=== PATIENT | female | born 1990 | race Caucasian/White ===

== ENCOUNTER 2017-08-18 20:36 | Inpatient (IN) | payer OTHER ==
[~2017-08-18] VITALS: Ht 157.5 cm; Wt 69.9 kg
[2017-08-18] VITALS (40 sets, daily range): BP systolic 109–145; BP diastolic 64–97; PULSE 72–96; RESP 15; O2SAT 100
[~2017-08-18 20:36] MED LIST: IBUP600 PO; PREN0.01 PO; ePHEDrine/NS 25 MG/5 ML SYRINGE IV PUSH PRN; fentaNYL 2MCG-BUPIV 0.125% 150 ML EPIDURAL PRN
[2017-08-18] MEDS ORDERED: LACTATED RINGER'S 1000 ML INJ 1,000 ML IV PRN (21:19)
[2017-08-18] MEDS ORDERED: LACTATED RINGER'S 1000 ML INJ 1,000 ML IV SCH (21:19)
[2017-08-18] MEDS ORDERED: fentaNYL 2MCG-BUPIV 0.125% INJ 150 ML EPIDURAL ONE (21:25)
[2017-08-18] MEDS ORDERED: MINERAL OIL 10 ML VIAL TOPICAL PRN (21:30)
[2017-08-18] MEDS ORDERED: LIDOCAINE HCL 1% 50 ML VIAL INFIL PRN (21:30)
[2017-08-18] MEDS ORDERED: OXYTOCIN 30 UNITS-500ML PREMIX 500 ML IV ONE (21:30)
[2017-08-18] MEDS ORDERED: LIDOCAINE HCL 1% 50 ML VIAL I-DERMAL PRN (21:30)
[2017-08-18] MEDS ORDERED: PENICILLIN G POTASSIUM INJ 5,000,000 UNITS in SODIUM CHLORIDE 0.9% INJ 100 ML IV ONE (21:30)
[2017-08-18] MEDS ORDERED: DO NOT ADMINISTER ANTICOAGULANTS PRN (21:30)
[2017-08-18] MEDS ORDERED: CITRIC ACID-SODIUM CITRATE LIQ 30 ML UDC PO SCH (21:30)
[2017-08-18] MEDS ORDERED: SODIUM CHLORID 0.9% 500 ML INJ 500 ML IV PRN (21:30)
[2017-08-18] MEDS ORDERED: NO SYSTEM NARCOTICS PRN (21:30)
[2017-08-18] MEDS ORDERED: ONDANSETRON ODT 4 MG TAB PO PRN (21:30)
[2017-08-18] MEDS ORDERED: ePHEDrine/NS 25 MG/5 ML SYRINGE ONE (21:32)
[2017-08-18] MEDS ORDERED: SODIUM CHLOR 0.9% 1000 ML INJ 1,000 ML IV PRN (21:39)
[2017-08-18 21:48] LABS: AUTOMATED NEUTROPHIL # 6.5 TH/MM3 (1.8-7.7); BASOPHIL % 0.3 % (0.0-2.0); EOSINOPHIL # 0.1 TH/MM3 (0-0.4); EOSINOPHIL % 1.4 % (0.0-4.0); HEMATOCRIT 35.4 % (35.0-46.0); HEMOGLOBIN 11.8 GM/DL (11.6-15.3); LYMPH % 24.4 % (9.0-44.0); LYMPHOCYTE # 2.3 TH/MM3 (1.0-4.8); MEAN CELL VOLUME 88.1 FL (80.0-100.0); MEAN CORPUSCULAR HEMOGLOBIN 29.4 PG (27.0-34.0); MEAN CORPUSCULAR HGB CONC 33.3 % (32.0-36.0); MEAN PLATELET VOLUME 11.3 FL (7.0-11.0); MONOCYTE # 0.6 TH/MM3 (0-0.9); NEUT % 67.9 % (16.0-70.0); PLATELET COUNT 99 TH/MM3 (150-450); RED BLOOD COUNT 4.01 MIL/MM3 (4.00-5.30); RED CELL DISTRIBUTION WIDTH 13.8 % (11.6-17.2); WHITE BLOOD COUNT 9.5 TH/MM3 (4.0-11.0)
--- NOTE | 2017-08-18 22:05 | PD ---
HPI Chief Complaint contractions Date Seen: Aug 18, 2017 Time Seen: 21:10 Travel History International Travel<30 Days: No Contact w/Intl Traveler<30Days: No Known Affected Area: No History of Present Illness HPI 27 presents at 39 wks c/o regular contractions. +FM, no LOF or VB. uncomplicated. care with dr. hernandez. states GBS + History Past Medical History Medical History: Denies Significant Hx Obstetric History Obstetric History X 2 Past Surgical History Narrative Surgical breast augmentation jaw surgery Family History Family History: Negative Social History Alcohol Use: No Tobacco Use: No Substance Abuse: No Allergies-Medications (Allergen,Severity, Reaction): Coded Allergies: No Known Allergies (Unverified , 12/06/15) Home Meds Reported Medications Multivit/Min/Fol Ac/Iron/Pren ( Vit ( Plus)) Tab, 1 TAB PO DAILY, TAB 12/06/15 Discontinued Scripts Ibuprofen (Motrin 600 Mg Tab) 600 Mg Tab, 600 MG PO Q6H Y for CRAMPING, #30 TAB 1 Refill Prov:Madison Juraez MD 12/07/15 Review of Systems Except as stated in HPI: all other systems reviewed are Neg Physical Exam AFVSS Narrative GENERAL: Well-nourished, well-developed patient. SKIN: Warm and dry. HEAD: Normocephalic and atraumatic. EYES: No scleral icterus. No injection or drainage. ENT: No nasal drainage noted. Mucous membranes pink. Airway patent. NECK: Supple, trachea midline. No JVD. CARDIOVASCULAR: Regular rate and rhythm without murmurs, gallops, or rubs. RESPIRATORY: Breath sounds equal bilaterally. No accessory muscle use. BREASTS: Bilateral exam showed no masses , no retractions, no nipple discharge. ABDOMEN/GI: Abdomen soft, non-tender, bowel sounds present, no rebound, no guarding Gravid GENITOURINARY: External Genitalia: intact and normal in appearance Cervix: [-] 6/100/-2 Presentation: [-] vtx Membranes: [intact] Uterine Contractions: [-] q 2-3 FHT's: Category: [-] 1 Baseline: [-] 130s Reactive: [-] yes Variability: [-] mod Decels: [-] none EXTREMITIES: No cyanosis or edema. BACK: Nontender without obvious deformity. No CVA tenderness. NEUROLOGICAL: Awake and alert. Motor and sensory grossly within normal limits. Five out of 5 muscle strength in all muscle groups. Normal speech. Data Data Vital Signs Reviewed: Yes Orders Orders Ob (2e) Additional Admit Info (08/18/17 21:00) Admit To Inpatient (08/18/17 ) Code Status (08/18/17 21:19) Vital Signs (Adult) .Per protocol (08/18/17 21:19) Activity Oob Ad Natalie (08/18/17 21:19) Heart (08/18/17 21:19) Amnioinfusion (08/18/17 21:19) Urinary Catheter Management .ONCE (08/18/17 21:19) Diet Liquid (08/19/17 Breakfast) Lactated Ringer's 1000 Ml Inj (Lr 1000 M (08/18/17 21:19) Lactated Ringer's 1000 Ml Inj (Lr 1000 M (08/18/17 21:19) Sodium Chlorid 0.9% 500 Ml Inj (Ns 500 M (08/18/17 21:30) Sodium Chlor 0.9% 1000 Ml Inj (Ns 1000 M (08/18/17 21:39) Lidocaine 1% Inj (50 Ml) (Xylocaine 1% I (08/18/17 21:30) Citric Acid-Sodium Citrate Liq (Bicitra (08/18/17 21:30) Ondansetron Inj (Zofran Inj) (08/18/17 21:30) Fentanyl Inj (Fentanyl Inj) (08/18/17 21:30) Fentanyl Inj (Fentanyl Inj) (08/18/17 21:30) Penicillin G Potassium Inj (Pfizerpen-G (08/18/17 21:30) Penicillin G Potassium Inj (Pfizerpen-G (08/19/17 01:30) Complete Blood Count With Diff (08/18/17 21:19) Hold Clot (08/18/17 21:19) Abo/Rh Blood Type (08/18/17 21:19) Urinalysis - C+S If Indicated (08/18/17 21:19) Drug Screen, Random Urine (08/18/17 21:19) Ob/Psych Drug Screen, Urine (08/18/17 21:19) Resp Oxygen Non Rebreathe Mask (08/18/17 ) ^ Epidural / Intrathecal Infus (08/18/17 21:19) Oxytocin 30 Units-500ml Premix (Pitocin (08/18/17 21:30) Lidocaine 1% Inj (50 Ml) (Xylocaine 1% I (08/18/17 21:30) Light Mineral Oil (Muri-Lube Oil) (08/18/17 21:30) Inpatient Certification (08/18/17 ) Specimen To Be Collected PRN (08/18/17 21:19) Specimen To Be Collected PRN (08/18/17 21:19) Group B Strep: Positive MDM Medical Record Reviewed: Yes Interpretation(s) LABOR at term Plan admit start pcn g for GBS + d/w dr. juarez Diagnosis Diagnosis: Primary Impression: Labor established Additional Impression: Connie Beebe MD Aug 18, 2017 22:05
[2017-08-18] MEDS ORDERED: BUPIVACAINE HCL PF 0.25% 10 ML VIAL ONE (22:14)
[2017-08-18 22:34] LABS: OVALOCYTES 1+ (NORMAL)
[2017-08-19] VITALS (28 sets, daily range): BP systolic 102–134; BP diastolic 41–97; PULSE 68–116; RESP 15–18; TEMP 98–98.2; O2SAT 100
[2017-08-19 00:21] LABS: BILIRUBIN, URINE NEG (NEG); BLOOD, URINE NEG (NEG); GLUCOSE,URINE NEG (NEG); KETONE, URINE 20 mg/dL (NEG); MUCUS URINE FEW /lpf (OCC); NITRITE,URINE NEG (NEG); URINE COLOR YELLOW (YELLW/STRAW); URINE LEUKOCYTE ESTERASE NEG (NEG)
[2017-08-19] MEDS ORDERED: LIDOCAINE HCL 1% PF 30 ML VIAL ONE (01:12)
[2017-08-19] MEDS ORDERED: PENICILLIN G POTASSIUM INJ 2,500,000 UNITS in SODIUM CHLORIDE 0.9% INJ 100 ML IV SCH (01:30)
--- NOTE | 2017-08-19 01:36 | PD.OB.DELI ---
Weeks gestation: 39 Pt started active labor?: Yes Medical induction of labor?: No Artificial rupture of membrane: No Anesthesia: Epidural Episiotomy: None Vaginal Delivery: Normal Presentation: Occiput posterior, Vertex Nuchal Cord: None Delayed cord clamping (45 sec): Yes Infant: Male Delivery date: Aug 19, 2017 Delivery time: 01:07 One Minute : 8 Five Minute : 9 Placenta: Spontaneous delivery, Intact, 3 vessel cord Laceration: Perineal laceration, 2 deg Repair: Chromic running Estimated blood loss: 200 mL Madison Juarez MD Aug 19, 2017 01:36
[2017-08-19] MEDS ORDERED: ALUMINUM/MAGNESIUM/SIMETH 30 ML CUP PO PRN (01:45)
[2017-08-19] MEDS ORDERED: ACETAMINOPHEN 325 MG TAB PO PRN (01:45)
[2017-08-19] MEDS ORDERED: oxyCODONE/ACETAMINOPHEN 5 MG/325 MG TAB PO PRN ×2 (01:45)
[2017-08-19] MEDS ORDERED: WITCH HAZEL 50%/GLYCERIN 12.5% 40 PAD JAR TOPICAL PRN (01:45)
[2017-08-19] MEDS ORDERED: BENZOCAINE 20% TOPICAL SPRAY 60 ML CAN TOPICAL PRN (01:45)
[2017-08-19] MEDS ORDERED: OXYTOCIN 30 UNITS-500ML PREMIX 500 ML IV SCH (01:45)
[2017-08-19] MEDS ORDERED: DOCUSATE SODIUM 50 MG/SENNA 8.6 MG TAB PO PRN (01:45)
[2017-08-19] MEDS ORDERED: ONDANSETRON ODT 4 MG TAB PO PRN (01:45)
[2017-08-19] MEDS ORDERED: ZOLPIDEM TARTRATE 5 MG TAB PO PRN (01:45)
[2017-08-19] MEDS ORDERED: SODIUM CHLORIDE 0.9% FLUSH 10 ML FLUSH IV FLUSH PRN (01:45)
[2017-08-19] MEDS: IBUPROFEN 800 MG TAB PO PRN ×2 (01:56→21:41)
[2017-08-19] MEDS: SODIUM CHLORIDE 0.9% FLUSH 10 ML FLUSH IV FLUSH SCH ×2 (03:30→21:42)
--- NOTE | 2017-08-19 09:33 | HHI.OB ---
Subjective Post Day: 1 Remarks PPD#1, doing well, having some difficulty with Bf, awaiting counseling Objective Vitals/I&O Vital Signs Date Time Temp Pulse Resp B/P (MAP) Pulse Ox O2 Delivery O2 Flow Rate FiO2 08/19/17 03:58 98.2 76 18 117/86 (96) 08/19/17 02:30 86 109/74 (86) 08/19/17 02:15 76 112/50 (70) 08/19/17 02:03 17 08/19/17 02:01 81 125/72 (89) 08/19/17 01:46 18 08/19/17 01:45 85 124/79 (94) 08/19/17 01:30 79 120/64 (82) 08/19/17 01:19 98.0 18 08/19/17 01:15 91 110/61 (77) 08/19/17 01:05 116 100 08/19/17 01:05 111 08/19/17 01:00 107 08/19/17 01:00 109 100 08/19/17 00:55 106 08/19/17 00:55 108 100 08/19/17 00:50 106 100 08/19/17 00:50 106 08/19/17 00:45 99 08/19/17 00:45 97 100 08/19/17 00:45 94 111/79 (90) 08/19/17 00:40 96 08/19/17 00:40 96 100 08/19/17 00:35 94 100 08/19/17 00:35 96 08/19/17 00:30 88 08/19/17 00:30 104 08/19/17 00:30 89 134/97 (109) 100 08/19/17 00:29 18 08/19/17 00:25 90 08/19/17 00:25 95 08/19/17 00:25 100 08/19/17 00:24 15 08/19/17 00:20 88 08/19/17 00:20 100 08/19/17 00:20 90 08/19/17 00:16 85 111/64 (80) 08/19/17 00:15 82 08/19/17 00:15 85 08/19/17 00:15 100 08/19/17 00:10 78 100 08/19/17 00:10 79 6/27/18 00:05 86 08/19/17 00:05 82 100 08/19/17 00:01 93 102/41 (61) 08/19/17 00:00 75 08/19/17 00:00 74 100 08/18/17 23:55 84 08/18/17 23:55 83 100 08/18/17 23:50 100 08/18/17 23:50 74 08/18/17 23:50 74 08/18/17 23:45 93 08/18/17 23:45 100 18 23:45 72 08/18/17 23:45 72 115/74 (88) 08/18/17 23:40 81 08/18/17 23:40 80 100 08/18/17 23:35 89 112/64 (80) 08/18/17 23:35 81 08/18/17 23:35 79 100 08/18/17 23:30 83 08/18/17 23:30 92 08/18/17 23:30 82 109/69 (82) 100 08/18/17 23:25 81 08/18/17 23:25 83 113/71 (85) 100 08/18/17 23:25 86 08/18/17 23:20 89 08/18/17 23:20 83 08/18/17 23:20 84 121/85 (97) 100 08/18/17 23:15 96 135/81 (99) 100 08/18/17 23:15 75 08/18/17 23:15 94 08/18/17 23:10 95 08/18/17 23:10 93 137/88 (104) 100 08/18/17 23:10 93 08/18/17 23:05 90 08/18/17 23:05 88 142/92 (109) 100 08/18/17 23:05 93 08/18/17 23:00 87 08/18/17 22:55 85 08/18/17 22:55 87 08/18/17 22:55 83 123/76 (92) 100 08/18/17 22:52 79 128/78 (95) 18 22:50 78 18 22:50 81 08/18/17 22:50 79 128/82 (97) 100 08/18/17 22:48 78 133/84 (100) 08/18/17 22:45 74 08/18/17 22:45 87 121/75 (90) 100 08/18/17 22:45 82 08/18/17 22:40 94 08/18/17 22:40 93 130/85 (100) 08/18/17 22:40 94 100 08/18/17 22:35 92 130/83 (99) 100 08/18/17 22:35 94 08/18/17 22:35 92 08/18/17 22:30 95 08/18/17 22:30 93 133/85 (101) 08/18/17 22:30 94 100 08/18/17 22:25 95 08/18/17 22:25 15 08/18/17 22:25 93 135/93 (107) 100 08/18/17 22:25 96 08/18/17 22:20 87 130/86 (101) 100 08/18/17 22:20 89 08/18/17 22:20 80 08/18/17 22:19 92 137/88 (104) 08/18/17 22:15 76 08/18/17 22:10 84 08/18/17 22:05 86 08/18/17 22:00 86 08/18/17 21:55 88 08/18/17 21:50 83 08/18/17 21:45 84 08/18/17 21:40 84 08/18/17 21:35 83 08/18/17 21:30 83 08/18/17 21:25 89 08/18/17 21:20 92 08/18/17 21:10 82 08/18/17 21:05 87 08/18/17 21:00 83 08/18/17 20:55 83 08/18/17 20:53 145/97 (113) Objective Remarks GENERAL: Well-nourished, well-developed patient. CARDIOVASCULAR: Regular rate and rhythm without murmurs, gallops, or rubs. RESPIRATORY: Breath sounds equal bilaterally. No accessory muscle use. ABDOMEN/GI: Abdomen soft, non-tender. Fundus: Firm, non-tender at umbilicus. GENITOURINARY: Light to moderate bleeding. EXTREMITIES: No cyanosis or edema, non-tender, without signs of DVT. Medications and IVs Current Medications Medications (Trade) Dose Ordered Sig/Jessica Route Start Time Stop Time Status Last Admin (NS Flush) 2 ml BID IV FLUSH 08/19/17 01:45 08/19/17 03:30 (NS Flush) 2 ml UNSCH PRN IV FLUSH 08/19/17 01:45 (Tylenol) 650 mg Q4H PRN PO 08/19/17 01:45 (Motrin) 800 mg Q8H PRN PO 08/19/17 01:45 08/19/17 01:56 (Percocet 5-325 Mg) 1 tab Q4H PRN PO 08/19/17 01:45 (Percocet 5-325 Mg) 2 tab Q4H PRN PO 08/19/17 01:45 (Americaine 20% Top Spr) 1 spray Q4H PRN TOPICAL 08/19/17 01:45 08/19/17 03:30 (Tucks Pads) 1 applic QID PRN TOPICAL 08/19/17 01:45 (Danyelle-Colace) 2 tab Q12H PRN PO 08/19/17 01:45 (Ambien) 5 mg HS PRN PO 08/19/17 01:45 (M-M-R Ii Inj) 0.5 ml ONCE ONCE SQ 08/19/17 16:00 08/19/17 16:01 (Boostrix Inj) 0.5 ml ONCE ONCE IM 08/19/17 16:00 08/19/17 16:01 (Mag-Al Plus Susp Liq) 15 ml Q8H PRN PO 08/19/17 01:45 (Zofran Odt) 4 mg Q6H PRN PO 08/19/17 01:45 Assessment/Plan Assessment and Plan PPD#1; Stable, will continue to BF. plan discharge for tomorrow Discharge Planning PPD#2 Chin Mccall MD Aug 19, 2017 09:33
[2017-08-19] MEDS ORDERED: DIPHTH/TETANUS/ACEL PERTUSSIS (BOOSTER) 0.5 ML VIAL/PFS IM ONE (16:00)
[2017-08-19] MEDS ORDERED: MEASLES, MUMPS, RUBELLA VACCINE 0.5 ML VIAL SQ ONE (16:00)
--- NOTE | 2017-08-19 17:29 | HHI.DCPOC ---
Discharge Care Plan Diagnosis: (1) (spontaneous vaginal delivery) Your Health Problems Are: Vaginal delivery Report Symptoms to Your Doctor -Temperature above 100.5 degrees -Redness, of incision or excessive or foul smelling drainage -Unusual pain or calf pain -Increased vaginal bleeding -Painful or difficulty urinating -Feelings of extreme sadness or anxiety after 2 weeks Goals to Promote Your Health * To prevent worsening of your condition and complications * To maintain your health at the optimal level Directions to Meet Your Goals Take your medications as prescribed Follow your dietary instruction Follow activity as directed Ensure plenty of rest for recovery Drink fluids for hydration Keep your appointments as scheduled Take your immunizations and boosters as scheduled If your symptoms worsen call your PCP, if no PCP go to Urgent Care Center or Emergency Room Smoking is Dangerous to Your Health. Avoid second hand smoke Call the 24-hour crisis hotline for domestic abuse at Daniel Guerrero MD Aug 19, 2017 17:29
[2017-08-20 02:04] VITALS: BP 114/68; PULSE 68; RESP 18; TEMP 97.8; O2SAT 97
[2017-08-20 02:08] VITALS: TEMP 97.8
[2017-08-20] MEDS ORDERED: IBUP-232 PO (10:11)
--- NOTE | 2017-08-20 10:16 | HHI.OB ---
Subjective Post Day: 1 Remarks Doing well, vaginal bleeding less than menses, pain controlled, desires discharge home today. Objective Vitals/I&O Vital Signs Date Time Temp Pulse Resp B/P (MAP) Pulse Ox O2 Delivery O2 Flow Rate FiO2 08/20/17 02:08 97.8 08/20/17 02:04 68 18 114/68 (83) 08/20/17 02:04 97 08/20/17 02:04 97.8 68 18 114/68 (83) 97 08/19/17 20:00 98.0 18 119/79 (92) 100 Objective Remarks GENERAL: Well-nourished, well-developed patient. CARDIOVASCULAR: Regular rate and rhythm without murmurs, gallops, or rubs. RESPIRATORY: Breath sounds equal bilaterally. No accessory muscle use. ABDOMEN/GI: Abdomen soft, non-tender. Fundus: Firm, non-tender at umbilicus. GENITOURINARY: Light to moderate bleeding. EXTREMITIES: No cyanosis or edema, non-tender, without signs of DVT. Medications and IVs Current Medications Medications (Trade) Dose Ordered Sig/Jessica Route Start Time Stop Time Status Last Admin (NS Flush) 2 ml BID IV FLUSH 08/19/17 01:45 08/19/17 21:42 (NS Flush) 2 ml UNSCH PRN IV FLUSH 08/19/17 01:45 (Tylenol) 650 mg Q4H PRN PO 08/19/17 01:45 (Motrin) 800 mg Q8H PRN PO 08/19/17 01:45 08/19/17 21:41 (Percocet 5-325 Mg) 1 tab Q4H PRN PO 08/19/17 01:45 (Percocet 5-325 Mg) 2 tab Q4H PRN PO 08/19/17 01:45 (Americaine 20% Top Spr) 1 spray Q4H PRN TOPICAL 08/19/17 01:45 08/19/17 03:30 (Tucks Pads) 1 applic QID PRN TOPICAL 08/19/17 01:45 (Danyelle-Colace) 2 tab Q12H PRN PO 08/19/17 01:45 (Ambien) 5 mg HS PRN PO 08/19/17 01:45 (Mag-Al Plus Susp Liq) 15 ml Q8H PRN PO 08/19/17 01:45 (Zofran Odt) 4 mg Q6H PRN PO 08/19/17 01:45 Assessment/Plan Assessment and Plan 27-year-old 003 status post at 39 weeks 1. day #1: Afebrile, vital signs stable, discharge home today. Discussed expectations, precautions and follow-up. -Male , circumcised today. 2. Thrombocytopenia: Either gestational or ITP, patient denies any known history of thrombocytopenia, - plts count on 04/09/17 was 195K Daniel Guerrero MD Aug 20, 2017 10:16
== END 2017-08-20 15:42 | disposition home or self-care (01) | DRG 775 ==
LOC: HOBED 20:36 → H2EA 21:02 → H1EA 08-19 03:19
PROVIDERS: ADMIT Obstetrics & Gynecology; ATTEND Obstetrics & Gynecology
PROC: 3E0R3BZ Introduction of Anesthetic Agent into Spinal Canal, Percutaneous Approach (ICD-10-PCS; 2017-08-18)
PROC: 00HU33Z Insertion of Infusion Device into Spinal Canal, Percutaneous Approach (ICD-10-PCS; 2017-08-18)
PROC: 10E0XZZ Delivery of Products of Conception, External Approach (ICD-10-PCS; principal; 2017-08-19)
PROC: 0KQM0ZZ Repair Perineum Muscle, Open Approach (ICD-10-PCS; 2017-08-19)
DX: O99.824 Streptococcus B carrier state complicating childbirth (principal); O99.12 Other diseases of the blood and blood-forming organs and certain disorders involving the immune mechanism complicating childbirth; D69.6 Thrombocytopenia, unspecified; O70.1 Second degree perineal laceration during delivery; Z98.82 Breast implant status; Z3A.39 39 weeks gestation of pregnancy; Z37.0 Single live birth
CPT/HCPCS: 80307; 81001; 85025; 86900; 86901; 99284; G0481; J2540; J2590; J7120